=== PATIENT | female | born 1940 | race Caucasian/White ===

== ENCOUNTER → 2017-04-09 | Outpatient (CLI) | payer MEDICARE, BC | END | disposition home or self-care (01) | LOC: CT 11:04 | DX: J32.9 Chronic sinusitis, unspecified (principal); M48.02 Spinal stenosis, cervical region | CPT/HCPCS: 70490 ==

== ENCOUNTER 2017-06-30 22:29 | Emergency (ER) | payer MEDICARE, BC ==
[2017-07-01] MEDS: HYDROcodone/APAP 5/325MG 1 TAB TABLET PO (00:33)
== END 2017-07-01 00:34 | disposition home or self-care (01) ==
LOC: ER 07-01 00:34
DX: M54.2 Cervicalgia (principal); R51 Headache; W01.0XXA Fall on same level from slipping, tripping and stumbling without subsequent striking against object, initial encounter; Y93.89 Activity, other specified; Y99.8 Other external cause status; Y92.481 Parking lot as the place of occurrence of the external cause
CPT/HCPCS: 70450; 72125; 99284-25

== ENCOUNTER → 2018-01-10 | Outpatient (CLI) | payer MEDICARE, BC ==
[2017-06-30 22:30] VITALS: BP 152/65
[~2018-01-10] MED LIST: AMLO10TA6 PO; BUDE10.2 IH; CLON0.2T PO; GLIM4TAB PO; HYDR-971 PO; INSU100I13 SQ; INSU100I17 SQ; LISI1TAB7 PO; MAGN400T3 PO; METF10007 PO; METO-239 PO; PANT20TA2 PO; PROAIR HFA8.5 GM INH
--- NOTE | 2018-01-10 15:44 | KCIC ---
PQRS Compliance statement: One or more of the following individualized dose reduction techniques were utilized for this examination: 1. Automated exposure control. 2. Adjustment of the mA and/or kV according to patient size. 3. Use of iterative reconstruction technique. Indication:Chronic maxillary sinusitis. TECHNIQUE: CT of the maxillofacial bones without IV contrast multiplanar reformats. COMPARISON: CT had from 06/30/2017 FINDINGS: No suspicious bony lesion. The globes, extraocular muscles and intraorbital fat are within normal limits. Hyperostosis frontalis noted. There is complete opacification of the left maxillary sinus with central hypoattenuation. No maxillary sinus wall erosion seen. Rest of the paranasal sinuses and mastoid air cells are clear. The temperamental joints are within normal limits. The noncontrast appearance of the facial soft tissues is within normal limits. IMPRESSION: Stable complete opacification of the left maxillary sinus with central focus of high attenuation which may represent calcifications or inspissated mucus. No adjacent sinus wall erosion to suggest aggressive behavior. Findings suggests chronic sinus disease. Evaluation by ENT is recommended to rule out obstructing maxillary antral lesion. Electronically signed by: Eliseo Mobley DO (01/10/2018 3:41 PM) [facility]
== END | disposition home or self-care (01) ==
LOC: KCIC CT 10:49
PROVIDERS: ATTEND Otolaryngology
DX: J32.0 Chronic maxillary sinusitis (principal); I12.9 Hypertensive chronic kidney disease with stage 1 through stage 4 chronic kidney disease, or unspecified chronic kidney disease; E11.22 Type 2 diabetes mellitus with diabetic chronic kidney disease; N18.3 Chronic kidney disease, stage 3 (moderate)
CPT/HCPCS: 70486

== ENCOUNTER → 2018-02-15 | Outpatient (CLI) | payer MEDICARE, BC ==
[2017-06-30 22:30] VITALS: BP 152/65
[~2018-02-15] MED LIST changes: +HYDR-3164 PO; -HYDR-971 PO
--- NOTE | 2018-02-15 18:45 | KCIC ---
CT scan of the paranasal sinuses without contrast 02/15/2018 CLINICAL HISTORY: Chronic sinusitis. Congestion. Drainage. Cough. TECHNIQUE: Unenhanced, contiguous, 0.6 mm axial sections were obtained through the paranasal sinuses. 1 mm reconstructed sagittal, axial and coronal images were obtained. One or more of the following individualized dose reduction techniques were utilized for this study: 1. Automated exposure control. 2. Adjustment of the mA and/or kV according to patient size. 3. Use of iterative reconstruction technique. FINDINGS: Comparison study is dated 01/10/2018. The patient appears to be post resection of a portion of the medial vasquez of both maxillary sinuses. Near complete opacification of the left maxillary sinus due to mucosal thickening is seen. Increased density material is seen within the central aspect of this mucosal thickening. This mucosal thickening has improved since the previous examination slightly. Mild to moderate mucosal thickening is seen involving the ethmoid air cells bilaterally. The frontal sinuses are well pneumatized. The sphenoid sinus is clear. The ethmoid air cells and middle ear cavities are well aerated and are clear. IMPRESSION: Since the previous examination there has been slight improvement in the mucosal thickening involving the left maxillary sinus. Electronically signed by: Crispin Singh MD (02/15/2018 6:41 PM) [facility]-KCIC1
== END | disposition home or self-care (01) ==
LOC: KCIC CT 10:30
PROVIDERS: ATTEND Otolaryngology
DX: J32.1 Chronic frontal sinusitis (principal); J32.3 Chronic sphenoidal sinusitis; J01.41 Acute recurrent pansinusitis
CPT/HCPCS: 70486

== ENCOUNTER → 2018-09-26 | Outpatient (CLI) | payer MEDICARE, BC ==
[2017-06-30 22:30] VITALS: BP 152/65
[~2018-09-26] MED LIST changes: +ALBU2.5V8 INH; -AMLO10TA6 PO; +AMLO10TA8 PO; -PROAIR HFA8.5 GM INH
--- NOTE | 2018-09-26 11:27 | CARD ---
MR#: [id number] Date of Study: 09/26/2018 Ordering Physician: LISSETTE INMAN, Referring Physician: LISSETTE INMAN, Tech: Lucero Gudino RDCS APPROVED REPORT EXAM: Two-dimensional and M-mode echocardiogram with Doppler and color Doppler. Other Information Quality : Good INDICATION Murmur RISK FACTORS Obesity 2D DIMENSIONS RVDd2.4 (2.9-3.5cm)Left Atrium(2D)3.5 (1.6-4.0cm) IVSd1.0 (0.7-1.1cm)Aortic Root(2D)2.8 (2.0-3.7cm) LVDd5.5 (3.9-5.9cm)LVOT Diameter2.2 (1.8-2.4cm) PWd1.0 (0.7-1.1cm)LVDs2.7 (2.5-4.0cm) FS (%) 30.0 %SV122.2 ml LVEF(%)60.0 (>50%) Aortic Valve AoV Peak Lucas.171.7cm/sAoV VTI43.8cm AO Peak GR.11.8mmHgLVOT Peak Lucas.102.7cm/s LVOT VTI 26.82cmAO Mean GR.7mmHg RAIMUNDO (VMAX)2.05cm6OMT (VTI)2.23cm2 Mitral Valve MV E Gabnstqp285.6cm/sMV DECEL FDKD859rf MV A Tmbxrzkg443.6cm/sMV ZSL37yt E/A Ratio0.9MVA (PHT)3.79cm2 TDI E/Lateral E'19.6E/Medial E'19.9 Tricuspid Valve TR P. Frrjfvfe840fv/sRAP XZGUUTGB4aqTm TR Peak Gr.22ulMbKUVF70zxWk Pulmonary Vein S1 Qtmbjamy88.8cm/sD2 Yodkchuk66.2cm/s LEFT VENTRICLE The left ventricle is normal size. There is normal left ventricular wall thickness. The left ventricu lar systolic function is normal. The Ejection Fraction is 60%. There is normal LV segmental wall cameron on. Transmitral Doppler flow pattern is Grade I-abnormal relaxation pattern. RIGHT VENTRICLE The right ventricle is normal size. The right ventricular systolic function is normal. ATRIA The left atrium size is normal. The right atrium size is normal. The interatrial septum is intact wit h no evidence for an atrial septal defect or patent foramen ovale as noted on 2-D or Doppler imaging. AORTIC VALVE The aortic valve is calcified but opens well. Doppler and Color Flow revealed trace aortic regurgitat ion. There is no significant aortic valvular stenosis. MITRAL VALVE The mitral valve is calcified but opens well. There is no evidence of mitral valve prolapse. There is no mitral valve stenosis. Doppler and Color-flow revealed trace to mild mitral regurgitation. TRICUSPID VALVE The tricuspid valve is normal in structure and function. Doppler and Color Flow revealed mild tricusp id regurgitation. The PA pressure was estimated at 24 mmHg. There is no tricuspid valve stenosis. PULMONIC VALVE The pulmonic valve is not well visualized. Doppler and Color Flow revealed no pulmonic valvular regur gitation. There is no pulmonic valvular stenosis. GREAT VESSELS The aortic root is normal in size. The ascending aorta is normal in size. The IVC is normal in size a nd collapses >50% with inspiration. PERICARDIAL EFFUSION There is no evidence of significant pericardial effusion. Critical Notification Critical Value: No <Conclusion> The left ventricular systolic function is normal. The Ejection Fraction is 60%. There is normal LV segmental wall motion. Transmitral Doppler flow pattern is Grade I-abnormal relaxation pattern. Trace to mild mitral regurgitation. Mild tricuspid regurgitation. The PA pressure was estimated at 24 mmHg. There is no evidence of significant pericardial effusion. Signed by : Devon Marie, Electronically Approved : 09/26/2018 11:26:29
== END | disposition home or self-care (01) ==
LOC: ECHO 09:41
PROVIDERS: ATTEND Internal Medicine Cardiovascular Disease
DX: I08.3 Combined rheumatic disorders of mitral, aortic and tricuspid valves (principal)
CPT/HCPCS: 93306

== ENCOUNTER → 2020-05-29 | Outpatient (CLI) | payer MEDICARE, BC ==
[2020-04-28 15:00] VITALS: BP 153/54
[~2020-05-29] MED LIST changes: +AMLO-187 PO; -AMLO10TA8 PO; +LISI-130 PO; +LISI1TAB20 PO; -LISI1TAB7 PO; -MAGN400T3 PO; +MAGN400T5 PO
--- NOTE | 2020-05-29 16:20 | KCIC ---
EXAM: Renal sonogram. HISTORY: Renal failure. TECHNIQUE: Sonographic imaging the kidneys and bladder was performed. COMPARISON: None. FINDINGS: The kidneys are normal in size. No solid or cystic renal lesion is seen. There is no hydron ephrosis. The bladder is empty. IMPRESSION: 1. Sonographically unremarkable kidneys. 2. Empty bladder. Electronically signed by: Celine Lou MD (05/29/2020 4:18 PM) [id number]
== END ==
LOC: KCIC US 14:47
PROVIDERS: ATTEND Internal Medicine Nephrology
DX: N17.9 Acute kidney failure, unspecified (principal)
CPT/HCPCS: 76770

== ENCOUNTER 2021-03-20 07:35 | Emergency (ER) | payer MEDICARE, BC ==
[~2021-03-20] VITALS: Ht 157.5 cm; Wt 75.9 kg
[~2021-03-20 07:35] MED LIST changes: -LISI1TAB20 PO; +LISI1TAB39 PO; +MAGN400T48 PO; -MAGN400T5 PO
[2021-03-20 08:31] LABS: BASO % 1 % (0-3); EOS # 0.1 x10^3/uL (0.0-0.7); EOS % 1 % (0-3); HEMATOCRIT 36.1 % (36.0-47.0); LYMPH # 0.8 x10^3/uL (1.0-4.8); LYMPH % 8 % (24-48); MEAN CORPUSCULAR HEMOGLOBIN 28 pg (25-35); MEAN CORPUSCULAR HGB CONC 33 g/dL (31-37); MEAN CORPUSCULAR VOLUME 85 fL (79-100); MONO # 0.5 x10^3/uL (0.0-1.1); MONO % 5 % (0-9); NEUT % 87 % (31-73); PLATELET COUNT 333 x10^3/uL (140-400); RED BLOOD COUNT 4.24 x10^6/uL (3.50-5.40); WHITE BLOOD COUNT 10.4 x10^3/uL (4.0-11.0)
[2021-03-20 08:35] LABS: BILIRUBIN,URINE NEGATIVE (NEG); CLARITY,URINE CLOUDY; COLOR,URINE YELLOW; NITRITE,URINE NEGATIVE (NEG); PH,URINE 5.5 (<5.0-8.0); PROTEIN,URINE 100 mg/dL (NEG-TRACE)
[2021-03-20 08:40] LABS: BACTERIA,URINE MODERATE /HPF (0-FEW); WBC,URINE >40 /HPF (0-4)
[2021-03-20 08:46] LABS: CALCIUM 8.8 mg/dL (8.5-10.1); CREATININE 1.8 mg/dL (0.6-1.0); GFR 26.9; POTASSIUM 3.6 mmol/L (3.5-5.1)
[2021-03-20 08:52] LABS: ALBUMIN 2.1 g/dL (3.4-5.0); ALBUMIN/GLOBULIN RATIO 0.4 (1.0-1.7); TOTAL BILIRUBIN 0.7 mg/dL (0.2-1.0); TOTAL PROTEIN 7.1 g/dL (6.4-8.2)
--- NOTE | 2021-03-20 09:02 | RAD ---
INDICATION: Reason: soa, cough,PT GETTING IV/BLOOD DRAW 8:15AM / Spl. Instructions: / History: COMPARISON: April 19, 2020 FINDINGS: Single view of chest obtained. Cardiac mediastinal silhouette is slightly less prominent than on prior. Fullness of bilateral pulmon gee hilum again seen as well as some suspected lymph nodes in the area. Linear opacity in the right midlung. Degenerative changes of the spine. IMPRESSION: * Linear opacity in the right midlung. This could be secondary to a prominent blood vessel within th e area but linear atelectasis or infiltrate is not excluded given this finding. Electronically signed by: Eduardo Charles MD (03/20/2021 8:59 AM) [id number]
[2021-03-20] MEDS ORDERED: IV NORMAL SALINE 1000ML BAG 1,000 ML IV ONE (09:15)
[2021-03-20] MEDS ORDERED: cefTRIAXone IV Push 1 GM VIAL. IVP ONE (09:15)
[2021-03-20] MEDS ORDERED: MAGNESIUM SULFATE 1GM 100 ML IV ONE (10:00)
--- NOTE | 2021-03-20 10:04 | EKG ---
[facility] [address] [place] [address] Test Date: 2021-03-20 Test Time: 07:45:09 Pat Name: MARKEL VANG Department: Room: Gender: F Ice Cutter: : 1940 Requested By: FANY SANDERS Order Number: [id number] Reading MD: Devon Marie Measurements Intervals [place] Rate: 61 P: 38 GA: 196 QRS: 0 QRSD: 94 T: 1 QT: 436 QTc: 440 Interpretive Statements SINUS RHYTHM LEFTWARD AXIS QRS(T) CONTOUR ABNORMALITY CONSIDER ANTEROSEPTAL MYOCARDIAL DAMAGE Electronically Signed On 03-20-2021 14:24:34 [employer] by Devon Marie
--- NOTE | 2021-03-20 10:17 | PHYS DOC ---
Past Medical History Past Medical History: Asthma, Diabetes-Type II, Hypertension, Other Additional Past Medical Histor: lymphadema, neuropathy, stage 3 kidney fail Past Surgical History: Knee Replacement Smoking Status: Never Smoker Alcohol Use: None Drug Use: None General Adult EDM: Chief Complaint: COUGH HPI: HPI: Patient is a 81-year-old female who was brought here by EMS from home for evaluation of generalized weakness, cough, pain with urination. Patient says she not been feeling well for the last 2 weeks. Patient was tested for COVID-19 2 days ago but she did not know the results yet. Patient denies any abdominal pain, no chest pain, no headache. Patient says she just had no energy. Patient had COVID-19 infection last March. Patient said few days ago she was having pain with urination. Patient says she also been constipated. She denies any nausea vomiting. Review of Systems: Review of Systems: Constitutional: Denies fever or chills. [] Eyes: Denies change in visual acuity. [] HENT: Denies nasal congestion or sore throat. [] Respiratory: Positive for cough or shortness of breath. [] Cardiovascular: Denies chest pain or edema. [] GI: Denies abdominal pain, nausea, vomiting, bloody stools or diarrhea. Positive constipation : Positive for dysuria Musculoskeletal: Denies back pain or joint pain. [] Integument: Denies rash. [] Neurologic: Denies headache, focal weakness or sensory changes. [] Endocrine: Denies polyuria or polydipsia. [] Lymphatic: Denies swollen glands. [] Psychiatric: Denies depression or anxiety. [] Heart Score: C/O Chest Pain: N/A Risk Factors: Risk Factors: DM, Current or recent (<one month) smoker, HTN, HLP, family history of CAD, obesity. Risk Scores: Score 0 - 3: 2.5% MACE over next 6 weeks - Discharge Home Score 4 - 6: 20.3% MACE over next 6 weeks - Admit for Clinical Observation Score 7 - 10: 72.7% MACE over next 6 weeks - Early Invasive Strategies Current Medications: Current Medications Medications (Trade) Dose Ordered Sig/Hermann Start Time Stop Time Status Last Admin Dose Admin Ceftriaxone Sodium (Rocephin) 1 gm 1X ONCE 03/20/21 09:15 03/20/21 09:16 DC 03/20/21 09:23 1 GM Magnesium Sulfate/ Dextrose 100 ml @ 100 mls/hr 1X ONCE 03/20/21 10:00 03/20/21 10:59 03/20/21 09:50 100 MLS/HR Sodium Chloride 1,000 ml @ 1,000 mls/hr 1X ONCE 03/20/21 09:15 03/20/21 10:14 03/20/21 09:22 1,000 MLS/HR Allergies: Allergies: Allergies Coded Allergies Type Severity Reaction Last Updated Verified No Known Drug Allergies 03/20/21 No Physical Exam: PE: Constitutional: Well developed, well nourished, no acute distress, non-toxic appearance. [] HENT: Normocephalic, atraumatic, bilateral external ears normal, oropharynx moist, no oral exudates, nose normal. [] Eyes: PERRLA, EOMI, conjunctiva normal, no discharge. [] Neck: Normal range of motion, no tenderness, supple, no stridor. [] Cardiovascular:Heart rate regular rhythm, no murmur [] Lungs & Thorax: Bilateral breath sounds clear to auscultation [] Abdomen: Bowel sounds normal, soft, no tenderness, no masses, no pulsatile m asses. [] Skin: Warm, dry, no erythema, no rash. [] Back: No tenderness, no CVA tenderness. [] Extremities: No tenderness, no cyanosis, no clubbing, ROM intact, positive for bilateral lower extremity lymphedema [] Neurologic: Alert and oriented X 3, normal motor function, normal sensory function, no focal deficits noted. [] Psychologic: Affect normal, judgement normal, mood normal. [] Current Patient Data: Labs: Laboratory Tests Test 03/20/21 08:15 03/20/21 09:10 White Blood Count 10.4 x10^3/uL (4.0-11.0) Red Blood Count 4.24 x10^6/uL (3.50-5.40) Hemoglobin 12.0 g/dL (12.0-15.5) Hematocrit 36.1 % (36.0-47.0) Mean Corpuscular Volume 85 fL (79-100) Mean Corpuscular Hemoglobin 28 pg (25-35) Mean Corpuscular Hemoglobin Concent 33 g/dL (31-37) Red Cell Distribution Width 14.0 % (11.5-14.5) Platelet Count 333 x10^3/uL (140-400) Neutrophils (%) (Auto) 87 % (31-73) H Lymphocytes (%) (Auto) 8 % (24-48) L Monocytes (%) (Auto) 5 % (0-9) Eosinophils (%) (Auto) 1 % (0-3) Basophils (%) (Auto) 1 % (0-3) Neutrophils # (Auto) 9.0 x10^3/uL (1.8-7.7) H Lymphocytes # (Auto) 0.8 x10^3/uL (1.0-4.8) L Monocytes # (Auto) 0.5 x10^3/uL (0.0-1.1) Eosinophils # (Auto) 0.1 x10^3/uL (0.0-0.7) Basophils # (Auto) 0.0 x10^3/uL (0.0-0.2) Urine Collection Type Void Urine Color Yellow Urine Clarity Cloudy Urine pH 5.5 (<5.0-8.0) Urine Specific [place] 1.020 (1.000-1.030) Urine Protein 100 mg/dL (NEG-TRACE) Urine Glucose (UA) Negative mg/dL (NEG) Urine Ketones (Stick) Negative mg/dL (NEG) Urine Blood Large (NEG) Urine Nitrite Negative (NEG) Urine Bilirubin Negative (NEG) Urine Urobilinogen Dipstick 1.0 mg/dL (0.2 mg/dL) Urine Leukocyte Esterase Large (NEG) Urine RBC 6-10 /HPF (0-2) Urine WBC >40 /HPF (0-4) Urine Squamous Epithelial Cells Few /LPF Urine Bacteria Moderate /HPF (0-FEW) Sodium Level 132 mmol/L (136-145) L Potassium Level 3.6 mmol/L (3.5-5.1) Chloride Level 98 mmol/L (98-107) Carbon Dioxide Level 29 mmol/L (21-32) Anion Gap 5 (6-14) L Blood Urea Nitrogen 48 mg/dL (7-20) H Creatinine 1.8 mg/dL (0.6-1.0) H Estimated GFR (Cockcroft-Gault) 26.9 BUN/Creatinine Ratio 27 (6-20) H Glucose Level 262 mg/dL (70-99) H Lactic Acid Level 1.9 mmol/L (0.4-2.0) Calcium Level 8.8 mg/dL (8.5-10.1) Magnesium Level 1.7 mg/dL (1.8-2.4) L Total Bilirubin 0.7 mg/dL (0.2-1.0) Aspartate Amino Transferase (AST) 22 U/L (15-37) Alanine Aminotransferase (ALT) 22 U/L (14-59) Alkaline Phosphatase 97 U/L (46-116) Troponin I High Sensitivity 12 ng/L (4-50) DL-Pvn-I-Type Natriuretic Peptide 1166 pg/mL (0-449) H Total Protein 7.1 g/dL (6.4-8.2) Albumin 2.1 g/dL (3.4-5.0) L Albumin/Globulin Ratio 0.4 (1.0-1.7) L SARS-CoV-2 Antigen (Rapid) Negative (NEGATIVE) Laboratory Tests 03/20/21 08:15 Laboratory Tests 03/20/21 08:15 Vital Signs: Vital Signs Date Time Temp Pulse Resp B/P (MAP) Pulse Ox O2 Delivery O2 Flow Rate FiO2 03/20/21 09:52 60 20 187/74 (111 97 Room Air 03/20/21 07:54 97.6 97.6 EKG: EKG: [] Radiology/Procedures: Radiology/Procedures: [facility] [address] [place], [place] [id number] IMAGING REPORT Signed PATIENT: MARKEL VANG ACCOUNT: [id number] : 1940 LOCATION: ER AGE: 81 SEX: F EXAM STATUS: PRE ER ORD. PHYSICIAN: FANY SANDERS DO REASON: soa, cough,PT GETTING IV/BLOOD DRAW 8:15AM PROCEDURE: CHEST AP ONLY INDICATION: Reason: soa, cough,PT GETTING IV/BLOOD DRAW 8:15AM / Spl. Instructions: / History: COMPARISON: April 19, 2020 FINDINGS: Single view of chest obtained. Cardiac mediastinal silhouette is slightly less prominent than on prior. Fullness of bilateral pulmonary hilum again seen as well as some suspected lymph nodes in the area. Linear opacity in the right midlung. Degenerative changes of the spine. IMPRESSION: * Linear opacity in the right midlung. This could be secondary to a prominent blood vessel within the area but linear atelectasis or infiltrate is not excluded given this finding. Electronically signed by: Enrike Denney MD (03/20/2021 8:59 AM) [id number] DICTATED and SIGNED BY: ENRIKE DENNEY MD DATE: 03/20/21 [id number] Course & Med Decision Making: Course & Med Decision Making Pertinent Labs and Imaging studies reviewed. (See chart for details) Patient is a 81-year-old female who was brought here by EMS from home due to generalized weakness, frequent urination. Patient also complained of trouble breathing. Chest x-ray did not show any pneumonia evident. Patient was tested negative for COVID-19. Patient was found to have a urinary tract infection and slight dehydration. Patient was given IV fluid, IV antibiotic in the ER. Patient will be discharged home, she will need to take antibiotic at home for the UTI. Dragon Disclaimer: Dragon Disclaimer: This electronic medical record was generated, in whole or in part, using a voice recognition dictation system. Departure Departure Impression: Primary Impression: UTI (urinary tract infection) Additional Impressions: Dehydration Dyspnea Disposition: 01 HOME / SELF CARE / HOMELESS Condition: IMPROVED Referrals: CHAU ARBOLEDA MD (PCP) Follow-up with your doctor this week for reevaluation. Patient Instructions: Dehydration, Adult, Urinary Tract Infection Additional Instructions: Thank you for visiting our Emergency Department. We appreciate you trusting us with your care. If any additional problems come up don't hesitate to return to visit us. Please follow up with your primary care provider so they can plan additional care if needed and know about the problem that you had. If symptoms worsen come back to the Emergency Department. Any concerning symptoms that start such as chest pain, shortness of air, weakness or numbness on one side of the body, running high fevers or any other concerning symptoms return to the ER. Scripts Levofloxacin (LEVOFLOXACIN) 750 Mg Tablet 1 TAB PO DAILY, #5 TAB Prov: FANY SANDERS DO 03/20/21 FANY SANDERS DO Mar 20, 2021 10:17
[2021-03-20] MEDS ORDERED: LEVO750T5 PO (11:35)
[2021-03-20 11:44] VITALS: BP 193/74
--- NOTE | 2021-03-21 16:02 | NUR ---
IP: Attempted to contact pt concerning covid results. Phone number provided is not in service.
== END 2021-03-20 11:50 | disposition home or self-care (01) ==
LOC: ER 07:35
DX: N39.0 Urinary tract infection, site not specified (principal); E86.0 Dehydration; R06.00 Dyspnea, unspecified; Z20.822 Contact with and (suspected) exposure to COVID-19; J45.909 Unspecified asthma, uncomplicated; E11.40 Type 2 diabetes mellitus with diabetic neuropathy, unspecified; E11.22 Type 2 diabetes mellitus with diabetic chronic kidney disease; I12.9 Hypertensive chronic kidney disease with stage 1 through stage 4 chronic kidney disease, or unspecified chronic kidney disease; N18.30 Chronic kidney disease, stage 3 unspecified
CPT/HCPCS: 36415; 71045; 80053; 81001; 83605; 83735; 83880; 84484; 85025; 87077; 87086; 87186; 87426; 93005; 96365; 96375; 99285; J0696; J3475; J7030; U0003; U0005